=== PATIENT | male | born 1980 | race African-American/Black ===

== ENCOUNTER 2019-01-16 19:22 | Emergency (ER) | payer SELFPAY ==
--- NOTE | 2019-01-16 20:23 | RAD ---
EXAM: Chest one view: HISTORY: Dyspnea, cough, congestion, and earache COMPARISON: None FINDINGS: Heart size: Moderately enlarged. The lungs: Clear of acute process. No evidence for pneumonia, pleural effusion, acute edema, or pneumothorax, or other significant acute process. IMPRESSION: Moderate cardiomegaly without significant vascular congestion, edema, or other acute process.
[2019-01-16] MEDS ORDERED: HYDROcodone/Acetaminophen 5/325 mg Tablet ONE (20:40)
== END 2019-01-16 20:45 | disposition home or self-care (01) ==
LOC: MADERS 19:22
DX: S29.011A Strain of muscle and tendon of front wall of thorax, initial encounter (principal); J06.9 Acute upper respiratory infection, unspecified; X58.XXXA Exposure to other specified factors, initial encounter
CPT/HCPCS: 71045; 93005

== ENCOUNTER 2019-10-18 19:34 | Inpatient (IN) | payer SELFPAY ==
[2019-10-18] MEDS ORDERED: cefTRIAXone\\ROCEPHIN 1 GM VIAL ONE ×2 (20:06→20:29)
[2019-10-18] MEDS ORDERED: Ibuprofen 600 MG TAB ONE (20:06)
[2019-10-18] MEDS ORDERED: Sodium Chloride 0.9% 1,000 ML ONE (20:06)
[2019-10-18] MEDS ORDERED: Sodium Chloride 0.9% 100 ML ONE ×3 (20:07→21:08)
--- NOTE | 2019-10-18 20:15 | RAD ---
RADIOGRAPH CHEST 1 VIEW: DATE: 10/18/2019 TIME: 8:05 PM HISTORY: 39-year-old male with cough COMPARISON: 05/08/2019 FINDINGS: Small right pleural effusion and or pleural thickening, similar to prior study. The adjacent infiltra te at right lower lung zone appears worse on the current study compared to previous, but that could be due to lordotic positioning on the current study. Cardiomegaly. Mild pulmonary venous congestion. No new consolidation. No pneumothorax. Allowing for positional differences, and probably no major interval change. Old right posterior rib fracture deformities are noted. IMPRESSION: 1) small right pleural effusion and/or pleural thickening, similar to prior study. 2) adjacent airspace densities in the right lower lung zone appeared greater on the current study com pared to the previous. This apparent difference could be due to positional differences. 3) multiple old right rib fractures. 4) cardiomegaly and mild pulmonary venous congestion.
[2019-10-18 20:28] LABS: Anion Gap 16 mmol/L (10-20); BUN (Urea Nitrogen) 8 mg/dL (8.9-20.6); Calc. Creatinine Clearance 0 mL/min (70-130); Calcium 9.6 mg/dL (7.8-10.44); Carbon Dioxide 27 mmol/L (22-29); Chloride 105 mmol/L (98-107); Estimated GFR-MDRD Greater than 90; Glucose 136 mg/dL (70-105); Potassium 4.5 mmol/L (3.5-5.1); Sodium 143 mmol/L (136-145)
[2019-10-18 20:31] LABS: Hemoglobin 10.5 g/dL (14.0-18.0); Mean Corpuscular Volume 65.4 fL (78.0-98.0); Red Blood Cell (RBC) Count 5.84 mill/uL (4.70-6.10); White Blood Cell (WBC) Count 17.4 thou/uL (4.8-10.8)
[2019-10-18 20:32] LABS: MDiff Complete? YES; Manual Diff?? YES; Mean Corpuscular HGB CONC 27.5 g/dL (32.0-36.0); Mean Platelet Volume 6.9 fL (7.4-10.4); Platelet Count 365 thou/uL (130-400); RBC Distribution Width 17.5 % (11.5-14.5)
[2019-10-18 20:33] LABS: Anisocytosis SLIGHT = 6-15 cells (100X) (0-5/hpf); Delete Auto Diff?? YES; Elliptocytes SLIGHT = 2-5 cells (100X) (0-1/hpf); Eosinophils 5 % (0-10); Lymphocytes 6 % (21-51); Microcytosis MODERATE=15-30 cells (100X) (0-5/hpf); Monocytes 2 % (0-10); Neutrophil 87 % (42-75); Target Cells SLIGHT = 2-5 cells (100X) (0-1/hpf)
[2019-10-18 20:34] LABS: Tear Drops SLIGHT = 2-5 cells (100X) (0-1/hpf)
[2019-10-18] MEDS ORDERED: Azithromycin 500 MG VIAL ONE (21:08)
[2019-10-18 23:45] VITALS: BMI 40.7
[2019-10-19] MEDS ORDERED: Acetaminophen 325 MG TAB PO PRN (00:13)
[2019-10-19] MEDS: Guaifenesin DM 100-10/5 ML UDCUP PO PRN ×3 (00:25→23:47)
[2019-10-19] MEDS ORDERED: Ondansetron ODT 4 MG TAB PO PRN (12:08)
[2019-10-19] MEDS: cefTRIAXone\\ROCEPHIN 1 GM in Sodium Chloride 0.9% 100 ML IVPB SCH (12:55)
[2019-10-19] MEDS: Azithromycin 500 MG in Sodium Chloride 0.9% 250 ML 250 ML IVPB SCH ×3 (13:51→22:20)
[2019-10-19] MEDS ORDERED: Sodium Chloride 0.9% 1,000 ML IV SCH (15:00)
[2019-10-19] MEDS: metFORMIN 500 MG TAB PO SCH (16:42)
--- NOTE | 2019-10-19 18:54 | HP ---
PRIMARY CARE PHYSICIAN: Yuly Nick MD CHIEF COMPLAINT: Cough with shortness of breath x1 week. HISTORY OF PRESENT ILLNESS: Mr. Young is a 39-year-old male with medical history of obstructive sleep apnea, hypertension, diabetes type 2, diastolic heart failure, morbid obesity, iron deficiency anemia, who presented to the emergency room due to a 1-week history of low-grade fever, cough, wheezing, and progressively worsening shortness of breath. The patient states he has been around multiple sick contacts at home and he was trying to treat himself with [id number] medications, but he has progressively worsened. In the emergency room, the patient was noted to have O2 saturation of 87% on room air and some tachycardia when he presented. He had a low-grade temperature of 99.9. He had an extensive workup with a chest x-ray and some labs, and chest x-ray in the emergency room showed small right pleural effusion, pleural thickening similar to prior study, but right lower lung zone density is greater now compared to previous. The patient also had cardiomegaly, mild pulmonary venous congestion, and multiple old right rib fractures. In the emergency room, the patient was treated with ibuprofen 600 mg, DuoNeb, Rocephin 1 g, and azithromycin 500 mg. The patient had a WBC of 17.4. His hemoglobin was 10.5. Lactic acid was 1.4, but his CK was 1944. The patient has also had 2 previous hospitalizations in 2019 due to respiratory distress and pneumonia. Due to this, the decision was made to admit the patient for pneumonia and further management prior to discharge back to his home. Upon evaluation of the patient today, he states he feels slightly better after above treatments, but he is still having significant shortness of breath and coughing spells with minimal talking. He complains of shortness of breath with ambulation and spitting of phlegm. He denies any chest pain. Denies palpitation. Denies blurry vision, fever, or falls. PAST MEDICAL HISTORY: Hypertension, COPD, diabetes type 2, obstructive sleep apnea, on CPAP, iron deficiency anemia, diastolic heart failure, pulmonary hypertension , morbid obesity. PAST SURGICAL HISTORY: None. ALLERGIES: NO KNOWN DRUG ALLERGIES. FAMILY HISTORY: Noncontributory to this case. REVIEW OF SYSTEMS: CONSTITUTIONAL: The patient has fever, chills, generalized weakness. RESPIRATORY: The patient has cough, sputum production, shortness of breath, sleep apnea. CARDIOVASCULAR: No chest pain or palpitation. GASTROINTESTINAL: No nausea, vomiting, diarrhea, or abdominal pain. LIABILITY CLAIMS EXAMINER: No dizziness, headaches, falls. GENITOURINARY: No dysuria, burning, or hematuria. EXTREMITIES: No leg swelling. All other systems are negative except for the ones mentioned in findings above. MEDICATIONS: 1. Ferrous sulfate 325 b.i.d. 2. Metformin 500 b.i.d. 3. Lisinopril 20 mg daily. PHYSICAL EXAMINATION: VITAL SIGNS: Temperature 98.0, pulse 101, respirations 16, O2 saturation 96% on 2 L nasal cannula, and blood pressure 144/73. GENERAL: The patient is alert, awake, and oriented x3. Sitting up in bedside chair, in no apparent distress, but has coughing spells before completing sentences. HEENT: Eyes, normal conjunctivae. Oral mucous membranes moist. Anicteric sclerae. NECK: No JVD. RESPIRATORY: Bilateral decreased air entry. Scattered wheezing. No rales. Symmetrical expansion. CARDIOVASCULAR: Normal rate and rhythm. S1 and S2. No gallops. No murmurs. ABDOMEN: Soft, obese, nontender, and nondistended. MUSCULOSKELETAL: Full range of motion to all extremities. PSYCHIATRY: The patient is in a good mood. No anxiety. Optimal judgment. SKIN: No pallor. No rash. Capillary refill seems to be intact. NEUROLOGICAL: No focal deficits. Cranial nerves 2 through 12 intact. EXTREMITIES: No edema. ASSESSMENT AND PLAN: The patient is a 39-year-old male who presented due to worsening shortness of breath, cough, and wheezing. We will admit the patient to [facility] for right lower lobe pneumonia seen on chest x-ray. We will continue Rocephin 1 g and azithromycin 500 started in the emergency room. We will adjust medicine as needed. We will place the patient on DuoNeb q.6 scheduled and q.[address] We will place the patient on guaifenesin 600 mg q.6 b.i.d. and Robitussin DM p.r.n. We will continue home medications. We will do Accu-Chek fasting. We will repeat the CBC, BMP, and CK in the morning. We will place the patient on SCDs for DVT prophylaxis and PPI for GI prophylaxis. The patient is a full code. We will administer a Pneumovax vaccination for the patient during this hospitalization. Estimated length of stay, 3 to 4 days. Job ID: [id number] [facility]
[2019-10-19] MEDS: guaiFENesin ER 600 MG TAB PO SCH (22:08)
[2019-10-19] MEDS: Ferrous Sulfate 325 MG TAB PO SCH (22:08)
[2019-10-19] MEDS: Famotidine 20 MG TAB PO SCH (22:09)
[2019-10-19] MEDS: Montelukast Sodium 10 mg Tablet PO SCH (22:09)
[2019-10-20 06:17] LABS: ALT (SGPT) 29 U/L (8-55); AST (SGOT) 26 U/L (5-34); Albumin 4.1 g/dL (3.5-5.0); Alkaline Phosphatase 73 U/L (40-110); Anion Gap 15 mmol/L (10-20); BUN (Urea Nitrogen) 6 mg/dL (8.9-20.6); Bilirubin, Total 0.5 mg/dL (0.2-1.2); Calc. Creatinine Clearance 232 mL/min (70-130); Calcium 8.9 mg/dL (7.8-10.44); Carbon Dioxide 27 mmol/L (22-29); Chloride 105 mmol/L (98-107); Estimated GFR-MDRD Greater than 90; Globulin 2.9 g/dL (2.4-3.5); Glucose 84 mg/dL (70-105); Sodium 143 mmol/L (136-145)
[2019-10-20 06:39] LABS: Hemoglobin 9.8 g/dL (14.0-18.0); Mean Corpuscular HGB CONC 26.9 g/dL (32.0-36.0); Mean Corpuscular Hemoglobin 17.7 pg (27.0-31.0); Mean Corpuscular Volume 65.6 fL (78.0-98.0); Platelet Count 345 thou/uL (130-400); RBC Distribution Width 17.6 % (11.5-14.5); Red Blood Cell (RBC) Count 5.52 mill/uL (4.70-6.10); White Blood Cell (WBC) Count 8.9 thou/uL (4.8-10.8)
[2019-10-20 06:40] LABS: #Basophils 0.1 thou/uL (0.0-0.2); #Eosinphils 0.4 thou/uL (0.0-0.7); #Neutrophils 6.6 thou/uL (1.40-6.50); %Basophils 1.5 % (0.0-1.0); %Eosinophils 4.1 % (0.0-10.0); %Lymphocytes 11.9 % (21.0-51.0); %Neutrophils 74.5 % (42.0-75.0); Anisocytosis SLIGHT = 6-15 cells (100X) (0-5/hpf); MDiff Complete? YES; Manual Diff?? NO; Mean Platelet Volume 7.4 fL (7.4-10.4)
[2019-10-20 06:41] LABS: Elliptocytes SLIGHT = 2-5 cells (100X) (0-1/hpf); Hypochromia SLIGHT = 6-15 cells (100X) (0-5/hpf); Microcytosis SLIGHT = 6-15 cells (100X) (0-5/hpf); Poikilocytosis SLIGHT = 6-15 cells (100X) (0-5/hpf); Target Cells SLIGHT = 2-5 cells (100X) (0-1/hpf)
[2019-10-20] MEDS: Famotidine 20 MG TAB PO SCH ×2 (08:32→21:51)
[2019-10-20] MEDS: metFORMIN 500 MG TAB PO SCH ×2 (08:32→18:07)
[2019-10-20] MEDS: guaiFENesin ER 600 MG TAB PO SCH ×2 (08:33→21:51)
[2019-10-20] MEDS: Ferrous Sulfate 325 MG TAB PO SCH ×2 (08:33→21:51)
[2019-10-20] MEDS: Lisinopril 20 MG TAB PO SCH (08:33)
[2019-10-20] MEDS: cefTRIAXone\\ROCEPHIN 1 GM in Sodium Chloride 0.9% 100 ML IVPB SCH (12:28)
[2019-10-20] MEDS: Azithromycin 500 MG in Sodium Chloride 0.9% 250 ML 250 ML IVPB SCH (21:50)
[2019-10-20] MEDS: buPROPion HCl 100 MG TAB PO SCH (21:51)
[2019-10-20] MEDS: Montelukast Sodium 10 mg Tablet PO SCH (21:51)
[2019-10-21] MEDS: guaiFENesin ER 600 MG TAB PO SCH (08:21)
[2019-10-21] MEDS: Famotidine 20 MG TAB PO SCH (08:21)
[2019-10-21] MEDS: metFORMIN 500 MG TAB PO SCH ×2 (08:21→17:07)
[2019-10-21] MEDS: buPROPion HCl 100 MG TAB PO SCH (08:21)
[2019-10-21] MEDS: Lisinopril 20 MG TAB PO SCH (08:22)
[2019-10-21] MEDS: Ferrous Sulfate 325 MG TAB PO SCH (08:22)
[2019-10-21] MEDS: cefTRIAXone\\ROCEPHIN 1 GM in Sodium Chloride 0.9% 100 ML IVPB SCH (11:50)
[2019-10-21 12:08] VITALS: BP 159/88; TEMP 97.9
[2019-10-21] MEDS ORDERED: Azithromycin 250 MG TAB PO SCH (17:00)
--- NOTE | 2019-10-22 03:04 | DIS ---
DATE OF ADMISSION: 10/18/2019 DATE OF DISCHARGE: 10/21/2019 DISCHARGE DISPOSITION: Back to home. DISCHARGE DIAGNOSES: 1. Community-acquired pneumonia, improving. 2. Shortness of breath, resolved. 3. Hypertension. 4. Diabetes type 2. 5. Tobacco abuse. DISCHARGE MEDICATIONS: 1. Azithromycin 250 x1 day. 2. DuoNeb q.4 p.r.n. shortness of breath or wheezing. 3. Wellbutrin 100 mg b.i.d. 4. Metformin 500 b.i.d. 5. Lisinopril 20 daily. 6. Ferrous sulfate 325 b.i.d. 7. Singulair 10 mg at bedtime. BRIEF HOSPITAL COURSE: Mr. Young is a 39-year-old male with a medical history of hypertension, obstructive sleep apnea on CPAP, type 2 diabetes, diastolic heart failure, iron deficiency anemia, and morbid obesity. The patient presented to the emergency room on the 18 of October due to a 1-week history of shortness of breath, cough, and a low-grade fever. In the emergency room, patient was noted to have O2 saturations in the 87, low-grade temperature, and chest x-ray confirmed a small pleural effusion and right lower lobe pneumonia. The decision was made to admit the patient for community-acquired pneumonia. He was started on IV Rocephin 1 g and azithromycin 500 mg and this was continued throughout hospitalization. The patient upon admission had a white count of 17.4, and this improved to 8.9 prior to discharge. His CK was also elevated on admission was 1944, and upon discharge was 910. The patient initially required oxygen and it was slowly weaned off. His respiratory status improved slowly. He still had episodes of coughing spells that was improved compared to when he previously came in. The patient had 4 doses of IV Rocephin 1g and 3 doses of IV azithromycin 500mg and 1 dose of oral 250mg azithromycin on day of discharge. He will complete 5th dose of Azithromycin tomorrow, and medicine was sent to the pharmacy for him. The patient was weaned off oxygen and he was subsequently discharged home. He was advised to stop tobacco smoking. The patient was started on Wellbutrin to help with this. The patient is a full code and the patient was discharged home in a stable condition with his . Discharge vital signs; temperature 97.9, pulse 78, respirations 20, O2 saturations 98% on room air, blood pressure 159/88. Job ID: [id number] MTDD
[2019-10-22] MEDS ORDERED: Azithromycin 250 MG TAB PO SCH (09:00)
--- NOTE | 2019-10-24 04:32 | PQF ---
[employer] Assistant Case Manager Crystal Reports Winform ViewerJEFF AVILES MANUEL OROZCO [id number] CLINICAL DOCUMENTATION CLARIFICATION FORM: POST DISCHARGE Addendum to original discharge summary date: ____ Late entry note date: __ DATE: 10/24/2019 ATTN: MANUEL OROZCO Please exercise your independent, professional judgment in responding to the clarification form. Clinical indicators are provided on the bottom of this form for your review Please check appropriate box(s) to clarify if the following diagnosis has been ruled in or ruled out: SEPSIS (CDI/Coding list diagnosis here) [ ] Ruled in diagnosis [ ] Continue to treat [ ] Resolved [ x ] Ruled out diagnosis [ ] Cannot rule out diagnosis [ ] Other diagnosis [ ] Unable to determine In addition, please specify: Present on Admission (POA): [ ] Yes [x ] No [ ] Unable to determine For continuity of documentation, please document condition throughout progress notes and discharge summary. Thank You. CLINICAL INDICATORS - SIGNS / SYMPTOMS / LABS Sepsis - Documented in ER report pg#9 Pulse rate 120 on 10/18 - Documented in ER report pg#2 Respiration rate 24 on 10/18 - Documented in ER report pg#2 Elevated WBC 17.4 on 10/18 - Documented in Laboratory RISK FACTORS Community Acquired Pneumonia - Documented in DS on 10/21 by MANUEL OROZCO HTN DM Diastolic heart failure - Documented in DS on 10/21 by MANUEL OROZCO TREATMENTS Azithromycin IVPB - Medication report Rocephin IVPB - Medication report [employer] Assistant Case Manager Crystal Reports Winform Viewer (This form is maintained as a part of the permanent medical record) 2014 [employer]. All Rights Reserved [email or web address] [not provided] MTDD
--- NOTE | 2019-10-27 05:02 | PQF ---
[employer] Senior Living Sales Counselor Crystal Reports Winform JEFF Cheek MANUEL OROZCO [id number] CLINICAL DOCUMENTATION CLARIFICATION FORM: POST DISCHARGE Addendum to original discharge summary date: ____ Late entry note date: __ DATE: 10/27/2019 ATTN:MANUEL OROZCO Please exercise your independent, professional judgment in responding to the clarification form. Clinical indicators are provided on the bottom of this form for your review Please check appropriate box(s): [ x] Acute Respiratory Failure: [ x ] with Hypoxia[ ] with Hypercapnia [ ] Acute On Chronic Respiratory Failure: [ ] with Hypoxia [ ] with Hypercapnia [ ] Acute Respiratory Failure due to: (etiology) [ ] ARDS (Acute Respiratory Distress Syndrome) [ ] Chronic Respiratory Failure only [ ] with Hypoxia [ ] with Hypercapnia [ ] Hypoxia [ ] Other diagnosis [ ] Unable to determine In addition, please specify: Present on Admission (POA): [ x ] Yes [ ] No [ ] Unable to determine For continuity of documentation, please document condition throughout progress notes and discharge summary. Thank You. CLINICAL INDICATORS - SIGNS / SYMPTOMS / LABS Shortness of breath 1 week - Documented in H&P on 10/18 by MANUEL THRASHER In Emergency room pt was noted to have O2 saturations in the 87 - Documented in DS on 10/21 by MANUEL OROZCO Chest X ray demonstrate Pleural effusion - Documented in DS on 10/21 by MANUEL OROZCO respiratory distress - Documented in ED note pg#2 Initially required oxygen & it was slowly weaned off. His respiratory status improved . 87% RA , 96% - Documented in ED note pg#2 RISK FACTORS Community acquired Pneumonia - Documented in DS on 10/21 by MANUEL OROZCO Diastolic heart failure HTN TREATMENTS: O2 delivery - Nasal Cannula [employer] Senior Living Sales Counselor Crystal Reports Winform Viewer (This form is maintained as a part of the permanent medical record) 2014 [employer] All Rights Reserved [email or web address] MTDD
== END 2019-10-21 17:35 | disposition home or self-care (01) | DRG 193 ==
LOC: MADERS 19:34 → MADMS 21:24
PROVIDERS: ADMIT Family Medicine; ATTEND Family Medicine
DX: J18.9 Pneumonia, unspecified organism (principal); J96.01 Acute respiratory failure with hypoxia; I50.32 Chronic diastolic (congestive) heart failure; Z68.41 Body mass index [BMI] 40.0-44.9, adult; E66.01 Morbid (severe) obesity due to excess calories; I11.0 Hypertensive heart disease with heart failure; J44.9 Chronic obstructive pulmonary disease, unspecified; E11.9 Type 2 diabetes mellitus without complications; G47.33 Obstructive sleep apnea (adult) (pediatric); D50.9 Iron deficiency anemia, unspecified
CPT/HCPCS: 36415; 36416; 71045; 80048; 80053; 82550; 83605; 83880; 84484; 85025; 87040; 87804; 90471; 90732; 93005; 94640; 96361; 96365; 96375; G0009; J0456; J0696; J3490; J7050; J7620

== ENCOUNTER 2020-04-09 18:35 | Emergency (ER) | payer SELFPAY ==
[2020-04-09] MEDS ORDERED: Insulin Regular 300 UNITS/3 ML VIAL ONE (18:49)
--- NOTE | 2020-04-09 19:03 | RAD ---
Portable frontal chest radiograph: 04/09/2020 COMPARISON: 10/18/2019 HISTORY: Altered mental status FINDINGS: Chronic hazy pleural and parenchymal density noted within the inferior lateral aspect of th e right lung base, similar when compared to prior chest radiograph performed 10/18/[address] performed 05/09/2019. Multiple old fractures are noted involving right-sided ribs in this nirmal on. Evaluation of the left base is slightly limited by motion. No focal consolidation or alveolar edema. No significant interval change. Stable prominence of the cardiac silhouette. IMPRESSION: Stable appearance of the chest as detailed above.
[2020-04-09 19:12] LABS: ALT (SGPT) 58 U/L (8-55); AST (SGOT) 19 U/L (5-34); Albumin 4.7 g/dL (3.5-5.0); Alkaline Phosphatase 238 U/L (40-110); Anion Gap 23 mmol/L (10-20); BUN (Urea Nitrogen) 22 mg/dL (8.9-20.6); Bilirubin, Total 0.6 mg/dL (0.2-1.2); CK (CPK) 689 U/L (30-200); Calc. Creatinine Clearance 0 mL/min (70-130); Calcium 11.5 mg/dL (7.8-10.44); Carbon Dioxide 24 mmol/L (22-29); Chloride 86 mmol/L (98-107); Estimated GFR-MDRD 38; Globulin 3.7 g/dL (2.4-3.5); Potassium 5.9 mmol/L (3.5-5.1); Protein, Total 8.4 g/dL (6.0-8.3); Sodium 127 mmol/L (136-145)
[2020-04-09 19:15] LABS: Bilirubin Negative (Negative); Blood, Urine Negative (Negative); Clarity Clear (Clear); Glucose, Urine (Dipstick) >=1000 mg/dL (Negative); Ketone, Urine Negative (Negative); Leukocyte Negative (Negative); Nitrite Negative (Negative); Protein, Urine (Dipstick) Negative (Neg-Trace); Urobilinogen 0.2 mg/dL (Less than 2); pH, Urine 5.5 (5.0-9.0)
[2020-04-09 19:16] LABS: Specific Gravity, Urine 1.032 (1.002-1.036)
[2020-04-09 19:18] LABS: #Lymphocytes 0.3 thou/uL (1.20-3.40); #Monocytes 0.3 thou/uL (0.11-0.59); #Neutrophils 6.7 thou/uL (1.40-6.50); %Basophils 0.3 % (0.0-1.0); %Eosinophils 0.2 % (0.0-10.0); %Lymphocytes 4.3 % (21.0-51.0); %Monocytes 4.5 % (0.0-10.0); %Neutrophils 90.7 % (42.0-75.0); Anisocytosis SLIGHT = 6-15 cells (100X) (0-5/hpf); Hemoglobin 12.5 g/dL (14.0-18.0); Hypochromia SLIGHT = 6-15 cells (100X) (0-5/hpf); MDiff Complete? YES; Mean Corpuscular HGB CONC 25.4 g/dL (32.0-36.0); Mean Corpuscular Hemoglobin 18.7 pg (27.0-31.0); Mean Corpuscular Volume 73.8 fL (78.0-98.0); Mean Platelet Volume 7.7 fL (7.4-10.4); Microcytosis SLIGHT = 6-15 cells (100X) (0-5/hpf); Platelet Count 389 thou/uL (130-400); Platelet Morphology Comment Appears Adequate; RBC Distribution Width 20.3 % (11.5-14.5); Red Blood Cell (RBC) Count 6.68 mill/uL (4.70-6.10); Stomatocytes SLIGHT = 2-5 cells (100X) (0-1/hpf); White Blood Cell (WBC) Count 7.3 thou/uL (4.8-10.8)
[2020-04-09 19:30] LABS: Glucose 1600 mg/dL (70-105)
--- NOTE | 2020-04-09 20:02 | CT ---
Head CT without contrast 04/09/2020: COMPARISON: None HISTORY: Altered mental status TECHNIQUE: Axial CT imaging at 5 mm intervals from vertex through skull base without contrast FINDINGS: Detailed assessment is slightly limited by head motion artifact. The visualized paranasal s inuses and mastoid air cells are well aerated. No displaced calvarial fracture, intracranial hemorrhage, midline shift, or mass effect. IMPRESSION: No acute findings.
[2020-04-09] MEDS ORDERED: Sodium Chloride 0.9% 1,000 ML ONE ×3 (20:57→22:37)
[2020-04-09 20:58] LABS: Anion Gap 25 mmol/L (10-20); BUN (Urea Nitrogen) 21 mg/dL (8.9-20.6); Calc. Creatinine Clearance 0 mL/min (70-130); Calcium 11.3 mg/dL (7.8-10.44); Carbon Dioxide 20 mmol/L (22-29); Chloride 98 mmol/L (98-107); Estimated GFR-MDRD 45; Potassium 4.8 mmol/L (3.5-5.1); Sodium 138 mmol/L (136-145)
[2020-04-09 21:18] LABS: Glucose 1201 mg/dL (70-105)
[2020-04-09 21:51] LABS: CO2 Tension (PvCO2) 45.7 mmHg (40.0-50.0)
[2020-04-09 21:52] LABS: Base Excess-Venous 2.4 mmol/L (-2.0 to 3.0); Calcium, Ionized 1.31 mmol/L (See Comments:); Chloride 106 mmol/L (98-107); Hemoglobin - Calc 15.8 g/dL (14.0-18.0); Potassium 4.6 mmol/L (3.5-5.1); Sodium 146 mmol/L (138-145); T. Carbon Dioxide 29.4 mmol/L (22.0-28.0); vO2 Saturation-calc 94.1 % (60.0-85.0)
== END 2020-04-09 22:45 | disposition short-term general hospital (02) ==
LOC: MADERS 18:35
DX: E10.10 Type 1 diabetes mellitus with ketoacidosis without coma (principal); E10.65 Type 1 diabetes mellitus with hyperglycemia; R41.82 Altered mental status, unspecified; E78.5 Hyperlipidemia, unspecified; E78.00 Pure hypercholesterolemia, unspecified; I10 Essential (primary) hypertension; J44.9 Chronic obstructive pulmonary disease, unspecified; F17.210 Nicotine dependence, cigarettes, uncomplicated; Z79.84 Long term (current) use of oral hypoglycemic drugs; Z79.899 Other long term (current) drug therapy
CPT/HCPCS: 70450; 71045; 80053; 81003; 82330; 82550; 82803; 84484; 85025; 93005; 94760; 96361; 96374; 96376; J1815; J7050

== ENCOUNTER 2021-06-11 19:59 | Emergency (ER) | payer BC, SELFPAY ==
[2021-06-12 21:59] LABS: SARS-CoV-2 PCR by NAA Not Detected (NotDetected)
== END 2021-06-11 23:27 | disposition home or self-care (01) ==
LOC: MADERS 19:59
DX: B34.9 Viral infection, unspecified (principal); Z20.822 Contact with and (suspected) exposure to COVID-19; E10.9 Type 1 diabetes mellitus without complications; E78.5 Hyperlipidemia, unspecified; I10 Essential (primary) hypertension; E66.9 Obesity, unspecified; J44.9 Chronic obstructive pulmonary disease, unspecified; E78.00 Pure hypercholesterolemia, unspecified; F17.210 Nicotine dependence, cigarettes, uncomplicated; Z79.82 Long term (current) use of aspirin; Z79.899 Other long term (current) drug therapy
CPT/HCPCS: 36416; 71045; J7620; U0003; U0005

== ENCOUNTER 2021-07-06 16:52 | Outpatient (CLI) | payer BC | END 2021-07-06 16:53 | disposition home or self-care (01) | LOC: MADRAD 16:52 | PROVIDERS: ATTEND Family Medicine | DX: J20.9 Acute bronchitis, unspecified (principal) | CPT/HCPCS: 71046 ==

== ENCOUNTER 2021-08-13 19:05 | Emergency (ER) | payer BC ==
[~2021-08-13 19:05] MED LIST: Lactated Ringer's 1,000 ML BAG ONE; Sodium Chloride 0.9% 100 ML BAG ONE
[2021-08-13] MEDS ORDERED: Ipratropium Bromide 2.5 ml Neb ONE (19:59)
[2021-08-13] MEDS ORDERED: Albuterol Sulfate 2.5 mg/0.5 ml Neb ONE (19:59)
[2021-08-13] MEDS ORDERED: methylPREDNISolone Sod Succ/PF 125 MG/2 ML VIAL ONE (19:59)
[2021-08-13 20:41] LABS: INR-International Normal Ratio 1.1; Prothrombin Time 13.8 sec (12.0-14.7)
[2021-08-13 20:42] LABS: PTT 36.2 sec (22.9-36.1)
[2021-08-13 20:44] LABS: D-Dimer Test 1.38 *mcg/mL (0.27-0.43)
[2021-08-13 20:50] LABS: Bicarbonate (HCO3v) 26.2 mmol/L (22.0-28.0); CO2 Tension (PvCO2) 54.9 mmHg (42.0-51.0); Calcium, Ionized 1.04 mmol/L (1.15-1.33); Chloride 92 mmol/L (98-107); Hemoglobin - Calc 10.5 g/dL (14.0-18.0); Potassium 4.6 mmol/L (3.5-5.1); Sodium 128 mmol/L (138-145); T. Carbon Dioxide 27.9 mmol/L (22.0-28.0); vO2 Saturation-calc 74.5 % (60.0-85.0)
[2021-08-13 20:53] LABS: ALT (SGPT) 56 U/L (8-55); AST (SGOT) 104 U/L (5-34); Albumin 3.7 g/dL (3.5-5.0); Alkaline Phosphatase 44 U/L (40-110); Anion Gap 17 mmol/L (10-20); BUN (Urea Nitrogen) 46 mg/dL (8.9-20.6); Bilirubin, Total 0.9 mg/dL (0.2-1.2); CRP (Inflammatory) 18.13 mg/dL (= or < 0.5); Calc. Creatinine Clearance 0 mL/min (70-130); Calcium 8.1 mg/dL (7.8-10.44); Carbon Dioxide 25 mmol/L (22-29); Chloride 93 mmol/L (98-107); Globulin 3.3 g/dL (2.4-3.5); Glucose 105 mg/dL (70-105); Magnesium 1.7 mg/dL (1.6-2.6); Potassium 4.7 mmol/L (3.5-5.1); Sodium 130 mmol/L (136-145)
[2021-08-13 21:20] LABS: #Lymphocytes 0.3 thou/uL (1.20-3.40); #Monocytes 0.2 thou/uL (0.11-0.59); #Neutrophils 7.6 thou/uL (1.40-6.50); %Basophils 0.4 % (0.0-1.0); %Lymphocytes 3.9 % (21.0-51.0); %Monocytes 2.8 % (0.0-10.0); %Neutrophils 92.9 % (42.0-75.0); Bite Cells SLIGHT = 2-5 cells (100X) (0-1/hpf); Hypochromia MODERATE=16-30 cells (100X) (0-5/hpf); MDiff Complete? YES; Mean Corpuscular HGB CONC 28.5 g/dL (32.0-36.0); Mean Corpuscular Hemoglobin 17.7 pg (27.0-31.0); Mean Corpuscular Volume 62.3 fL (78.0-98.0); Mean Platelet Volume 6.5 fL (7.4-10.4); Microcytosis MODERATE=15-30 cells (100X) (0-5/hpf); Platelet Count 263 thou/uL (130-400); RBC Distribution Width 16.5 % (11.5-14.5); Red Blood Cell (RBC) Count 5.09 mill/uL (4.70-6.10); Reflex for Review?? YES; White Blood Cell (WBC) Count 8.2 thou/uL (4.8-10.8)
[2021-08-13 21:35] LABS: CKMB 19.1 ng/mL (0-6.6)
[2021-08-13] MEDS ORDERED: Cefepime 2 GM VIAL ONE (22:00)
[2021-08-13] MEDS ORDERED: Ibuprofen 800 MG TAB ONE (22:09)
[2021-08-13 22:30] LABS: SARS-CoV-2 NAA Rapid Test DETECTED (NotDetected)
== END 2021-08-13 22:27 | disposition short-term general hospital (02) ==
LOC: MADERS 19:05
DX: A41.9 Sepsis, unspecified organism (principal); R65.20 Severe sepsis without septic shock; U07.1 COVID-19; N17.9 Acute kidney failure, unspecified; J96.92 Respiratory failure, unspecified with hypercapnia; J96.91 Respiratory failure, unspecified with hypoxia; G93.40 Encephalopathy, unspecified; R77.8 Other specified abnormalities of plasma proteins; E78.5 Hyperlipidemia, unspecified; I10 Essential (primary) hypertension; E10.9 Type 1 diabetes mellitus without complications; J44.9 Chronic obstructive pulmonary disease, unspecified; F17.210 Nicotine dependence, cigarettes, uncomplicated
CPT/HCPCS: 36416; 70450; 71045; 80053; 82330; 82553; 82803; 83605; 83735; 83880; 84443; 84484; 85025; 85060; 85379; 85610; 85730; 86140; 87040; 93005; 96374; 96375; J0692; J2930; J3490; J7120; J7611; J7620; U0002

== ENCOUNTER 2022-02-07 14:19 | Outpatient (CLI) | payer BC ==
[2022-02-07 17:59] LABS: ALT (SGPT) 40 U/L (8-55); AST (SGOT) 35 U/L (5-34); Albumin 4.4 g/dL (3.5-5.0); Alkaline Phosphatase 61 U/L (40-110); Anion Gap 18 mmol/L (10-20); BUN (Urea Nitrogen) 19 mg/dL (8.9-20.6); Bilirubin, Total 0.6 mg/dL (0.2-1.2); Calc. Creatinine Clearance 0 mL/min (70-130); Calcium 9.2 mg/dL (7.8-10.44); Carbon Dioxide 29 mmol/L (22-29); Chloride 97 mmol/L (98-107); Globulin 2.9 g/dL (2.4-3.5); Glucose 273 mg/dL (70-105); Potassium 4.8 mmol/L (3.5-5.1); Protein, Total 7.3 g/dL (6.0-8.3); Sodium 139 mmol/L (136-145)
[2022-02-07 18:43] LABS: #Basophils 0.1 thou/uL (0.0-0.2); #Lymphocytes 0.3 thou/uL (1.20-3.40); #Monocytes 0.6 thou/uL (0.11-0.59); #Neutrophils 3.7 thou/uL (1.40-6.50); %Basophils 2.4 % (0.0-1.0); %Lymphocytes 6.9 % (21.0-51.0); %Monocytes 11.9 % (0.0-10.0); %Neutrophils 77.8 % (42.0-75.0); Hemoglobin 9.8 g/dL (14.0-18.0); Hypochromia MODERATE=16-30 cells (100X) (0-5/hpf); MDiff Complete? YES; Mean Corpuscular HGB CONC 27.5 g/dL (32.0-36.0); Mean Corpuscular Hemoglobin 17.3 pg (27.0-31.0); Mean Corpuscular Volume 62.7 fL (78.0-98.0); Mean Platelet Volume 8.2 fL (7.4-10.4); Microcytosis MODERATE=15-30 cells (100X) (0-5/hpf); Platelet Count 327 thou/uL (130-400); Platelet Morphology Comment Appears Adequate; Red Blood Cell (RBC) Count 5.71 mill/uL (4.70-6.10); Reflex for Review?? NO; White Blood Cell (WBC) Count 4.8 thou/uL (4.8-10.8)
== END 2022-02-07 14:20 | disposition home or self-care (01) ==
LOC: MADLAB 14:19 → MADRAD 14:20
PROVIDERS: ATTEND Family Medicine
DX: J44.1 Chronic obstructive pulmonary disease with (acute) exacerbation (principal); R53.83 Other fatigue; I51.89 Other ill-defined heart diseases; I51.7 Cardiomegaly
CPT/HCPCS: 71046; 80053; 83880; 84443; 85025

== ENCOUNTER 2022-08-26 18:14 | Emergency (ER) | payer BC ==
[2022-08-26 20:57] LABS: Bilirubin Negative (Negative); Blood, Urine Negative (Negative); Clarity Clear (Clear); Glucose, Urine (Dipstick) 500 mg/dL (Negative); Ketone, Urine Negative (Negative); Leukocyte Negative (Negative); Nitrite Negative (Negative); Protein, Urine (Dipstick) Negative (Neg-Trace); Urobilinogen 0.2 mg/dL (Less than 2); pH, Urine 6.5 (5.0-9.0)
[2022-08-26] MEDS ORDERED: Ketorolac Tromethamine 30 MG/ML VIAL ONE (20:57)
[2022-08-26 21:07] LABS: #Basophils 0.1 thou/uL (0.0-0.2); #Eosinphils 0.2 thou/uL (0.0-0.7); #Lymphocytes 0.7 thou/uL (1.20-3.40); #Neutrophils 5.5 thou/uL (1.40-6.50); %Basophils 1.6 % (0.0-1.0); %Eosinophils 3.3 % (0.0-10.0); %Lymphocytes 9.2 % (21.0-51.0); %Monocytes 12.7 % (0.0-10.0); %Neutrophils 73.3 % (42.0-75.0); Hemoglobin 10.3 g/dL (14.0-18.0); Hypochromia MODERATE=16-30 cells (100X) (0-5/hpf); MDiff Complete? YES; Mean Corpuscular HGB CONC 29.4 g/dL (32.0-36.0); Mean Corpuscular Hemoglobin 20.5 pg (27.0-31.0); Mean Corpuscular Volume 69.8 fl (78.0-98.0); Mean Platelet Volume 5.8 fL (7.4-10.4); Microcytosis MODERATE=15-30 cells (100X) (0-5/hpf); Ovalocytes SLIGHT = 2-5 cells (100X) (0-1/hpf); Platelet Count 321 10x3/uL (130-400); Polychromasia SLIGHT = 2-3 cells (100X) (0-2/hpf); RBC Distribution Width 17.9 % (11.5-14.5); Red Blood Cell (RBC) Count 5.04 mill/uL (4.70-6.10); Reflex for Review?? NO; White Blood Cell (WBC) Count 7.5 10x3/uL (4.8-10.8)
[2022-08-26 21:20] LABS: Anion Gap 17 mmol/L (10-20); BUN (Urea Nitrogen) 15 mg/dL (8.9-20.6); Calc. Creatinine Clearance 0 mL/min (70-130); Calcium 9.7 mg/dL (7.8-10.44); Carbon Dioxide 28 mmol/L (22-29); Chloride 102 mmol/L (98-107); Estimated GFR 86; Glucose 95 mg/dL (70-105); Sodium 142 mmol/L (136-145)
[2022-08-26 21:37] LABS: CKMB 8.7 ng/mL (0-6.6)
[2022-08-26] MEDS ORDERED: Furosemide 40 MG/4 ML VIAL ONE (22:51)
[2022-08-27] MEDS ORDERED: Aspirin 325 MG TAB ONE (01:32)
[2022-08-27 04:31] LABS: Troponin I 0.031 ng/mL (< 0.028)
[2022-08-27] MEDS ORDERED: Furosemide 40 MG/4 ML VIAL ONE (13:17)
== END 2022-08-27 15:01 | disposition home or self-care (01) ==
LOC: MADERS 18:14
DX: I11.0 Hypertensive heart disease with heart failure (principal); I50.9 Heart failure, unspecified; R74.8 Abnormal levels of other serum enzymes; J18.9 Pneumonia, unspecified organism; E11.9 Type 2 diabetes mellitus without complications; Z79.4 Long term (current) use of insulin; Z79.84 Long term (current) use of oral hypoglycemic drugs; E66.9 Obesity, unspecified; J44.9 Chronic obstructive pulmonary disease, unspecified; E78.00 Pure hypercholesterolemia, unspecified; F17.210 Nicotine dependence, cigarettes, uncomplicated; Z79.899 Other long term (current) drug therapy; Z79.82 Long term (current) use of aspirin; Z20.822 Contact with and (suspected) exposure to COVID-19
CPT/HCPCS: 36416; 71045; 80048; 81003; 82553; 83605; 83735; 83880; 84484; 85025; 87804; 93005; 96374; 96375; 96376; J1885; J1940; U0003; U0005

== ENCOUNTER 2023-03-15 16:20 | Emergency (ER) | payer BC ==
[2023-03-15] MEDS ORDERED: Lactated Ringer's 2,000 ML ONE (17:42)
[2023-03-15 17:58] LABS: Bilirubin Negative (Negative); Blood, Urine Negative (Negative); Clarity Clear (Clear); Glucose, Urine (Dipstick) >=1000 mg/dL (Negative); Ketone, Urine 15 mg/dL (Negative); Leukocyte Negative (Negative); Nitrite Negative (Negative); Protein, Urine (Dipstick) Negative (Neg-Trace); Urobilinogen 0.2 mg/dL (Less than 2)
[2023-03-15 18:03] LABS: Specific Gravity, Urine 1.029 (1.002-1.036)
[2023-03-15 18:04] LABS: Bacteria/HPF Rare-Few HPF (None Seen); CAUTI Indications for Culture Dysuria,urgency,freq; RBC/HPF None Seen HPF (0-3); Squamous Epithelial 0-3 HPF (0-3); Urine Culture Reflex No No; WBC/HPF 0-3 HPF (0-3)
[2023-03-15 18:05] LABS: #Basophils 0.1 thou/uL (0.0-0.2); #Lymphocytes 0.6 thou/uL (1.20-3.40); #Monocytes 0.4 thou/uL (0.11-0.59); #Neutrophils 8.6 thou/uL (1.40-6.50); %Basophils 0.6 % (0.0-1.0); %Eosinophils 0.3 % (0.0-10.0); %Lymphocytes 5.7 % (21.0-51.0); %Monocytes 4.3 % (0.0-10.0); %Neutrophils 89.1 % (42.0-75.0); Hemoglobin 12.7 g/dL (14.0-18.0); Mean Corpuscular HGB CONC 28.8 g/dL (32.0-36.0); Mean Corpuscular Hemoglobin 19.7 pg (27.0-31.0); Mean Corpuscular Volume 68.5 fl (78.0-98.0); Mean Platelet Volume 9.2 fL (7.4-10.4); Platelet Count 368 10x3/uL (130-400); RBC Distribution Width 18.3 % (11.5-14.5); Red Blood Cell (RBC) Count 6.42 mill/uL (4.70-6.10); White Blood Cell (WBC) Count 9.6 10x3/uL (4.8-10.8)
[2023-03-15 18:08] LABS: ALT (SGPT) 37 U/L (8-55); AST (SGOT) 17 U/L (5-34); Albumin 4.3 g/dL (3.5-5.0); Alkaline Phosphatase 106 U/L (40-110); Anion Gap 22 mmol/L (10-20); BUN (Urea Nitrogen) 19 mg/dL (8.9-20.6); Bilirubin, Total 0.6 mg/dL (0.2-1.2); Calc. Creatinine Clearance 0 mL/min (70-130); Carbon Dioxide 20 mmol/L (22-29); Chloride 87 mmol/L (98-107); Estimated GFR 45; Globulin 3.7 g/dL (2.4-3.5); Lipase 100 U/L (8-78); Magnesium 1.9 mg/dL (1.6-2.6); Sodium 123 mmol/L (136-145)
[2023-03-15 18:09] LABS: Base Excess-Venous 1.1 mmol/L (-2.0 to 3.0); Bicarbonate (HCO3v) 24.8 mmol/L (22.0-28.0); Calcium, Ionized 1.09 mmol/L (1.15-1.33); Chloride 91 mmol/L (98-107); Hemoglobin - Calc 17.3 g/dL (14.0-18.0); Potassium 6.4 mmol/L (3.5-5.1); Sodium 122 mmol/L (138-145); T. Carbon Dioxide 25.9 mmol/L (22.0-28.0); vO2 Saturation-calc 98.8 % (60.0-85.0)
[2023-03-15 18:14] LABS: Glucose 788 mg/dL (70-105); Potassium 6.1 mmol/L (3.5-5.1)
[2023-03-15] MEDS ORDERED: Sodium Chloride 0.9% 250 ML 250 ML ONE (18:22)
[2023-03-15] MEDS ORDERED: INSULIN REGULAR IN 0.9 % NACL 100 UNITS/100 ML BAG ONE (18:22)
[2023-03-15] MEDS ORDERED: Sodium Chloride 0.9% 100 ML ONE (18:22)
[2023-03-15] MEDS ORDERED: Azithromycin 500 MG VIAL ONE ×2 (18:22→18:25)
[2023-03-15] MEDS ORDERED: cefTRIAXone (ROCEPHIN) 2 GM VIAL ONE (18:22)
[2023-03-15 18:36] LABS: Anisocytosis SLIGHT = 6-15 cells (100X) (0-5/hpf); Microcytosis SLIGHT = 6-15 cells (100X) (0-5/hpf); Polychromasia SLIGHT = 2-3 cells (100X) (0-2/hpf)
[2023-03-15 18:48] LABS: SARS-CoV-2 NAA Rapid Test Not Detected (NotDetected)
[2023-03-15] MEDS ORDERED: Sodium Chloride 0.9% 1,000 ML ONE (18:50)
[2023-03-15 21:13] LABS: Anion Gap 18 mmol/L (10-20); BUN (Urea Nitrogen) 17 mg/dL (8.9-20.6); Calc. Creatinine Clearance 0 mL/min (70-130); Calcium 9.4 mg/dL (7.8-10.44); Carbon Dioxide 22 mmol/L (22-29); Chloride 98 mmol/L (98-107); Estimated GFR 62; Glucose 395 mg/dL (70-105); Potassium 4.2 mmol/L (3.5-5.1); Sodium 134 mmol/L (136-145)
[2023-03-15] MEDS ORDERED: NS 0.9% w/ 20 MEQ KCL 1,000 ML ONE (21:30)
[2023-03-15] MEDS ORDERED: Furosemide 40 MG/4 ML VIAL ONE (21:41)
== END 2023-03-16 00:12 | disposition short-term general hospital (02) ==
LOC: MADERS 16:20
DX: E11.10 Type 2 diabetes mellitus with ketoacidosis without coma (principal); N17.9 Acute kidney failure, unspecified; E87.1 Hypo-osmolality and hyponatremia; J18.9 Pneumonia, unspecified organism; I10 Essential (primary) hypertension; J44.9 Chronic obstructive pulmonary disease, unspecified; E78.00 Pure hypercholesterolemia, unspecified; Z79.84 Long term (current) use of oral hypoglycemic drugs; Z79.899 Other long term (current) drug therapy; Z79.82 Long term (current) use of aspirin; Z79.4 Long term (current) use of insulin; Z20.822 Contact with and (suspected) exposure to COVID-19; Z87.891 Personal history of nicotine dependence
CPT/HCPCS: 36415; 36416; 71045; 80053; 81001; 82010; 82330; 82803; 83605; 83690; 83735; 85025; 87040; 93005; 94760; 96361; 96365; 96367; 96374; 96375; J0456; J0696; J1815; J1940; J3480; J3490; J7050; J7120

== ENCOUNTER 2023-09-22 17:07 | Emergency (ER) | payer BC ==
[2023-09-22] MEDS ORDERED: Aspirin Chewable 81 MG TAB ONE ×2 (17:59→18:40)
[2023-09-22 18:18] LABS: #Basophils 0.1 thou/uL (0.0-0.2); #Eosinphils 0.2 thou/uL (0.0-0.7); #Lymphocytes 0.8 thou/uL (1.20-3.40); #Monocytes 0.5 thou/uL (0.11-0.59); #Neutrophils 7.4 thou/uL (1.40-6.50); %Eosinophils 1.8 % (0.0-10.0); %Lymphocytes 8.9 % (21.0-51.0); %Monocytes 5.8 % (0.0-10.0); %Neutrophils 82.5 % (42.0-75.0); ALT (SGPT) 47 U/L (8-55); AST (SGOT) 30 U/L (5-34); Albumin 4.4 g/dL (3.5-5.0); Alkaline Phosphatase 101 U/L (40-110); Anion Gap 19 mmol/L (10-20); Anisocytosis SLIGHT = 6-15 cells (100X) (0-5/hpf); BUN (Urea Nitrogen) 19 mg/dL (8.9-20.6); Bilirubin, Total 0.4 mg/dL (0.2-1.2); Calc. Creatinine Clearance 0 mL/min (70-130); Calcium 10.1 mg/dL (7.8-10.44); Carbon Dioxide 24 mmol/L (22-29); Chloride 91 mmol/L (98-107); Estimated GFR 49; Globulin 3.5 g/dL (2.4-3.5); Hematocrit 37.2 % (42.0-52.0); Hemoglobin 10.7 g/dL (14.0-18.0); Hypochromia MODERATE=16-30 cells (100X) (0-5/hpf); MDiff Complete? YES; Mean Corpuscular HGB CONC 28.7 g/dL (32.0-36.0); Mean Corpuscular Hemoglobin 19.9 pg (27.0-31.0); Mean Corpuscular Volume 69.3 fl (78.0-98.0); Mean Platelet Volume 7.2 fL (7.4-10.4); Microcytosis SLIGHT = 6-15 cells (100X) (0-5/hpf); Platelet Adequacy Comment Appears Adequate; Platelet Count 291 10x3/uL (130-400); Potassium 4.7 mmol/L (3.5-5.1); Protein, Total 7.9 g/dL (6.0-8.3); Red Blood Cell (RBC) Count 5.37 mill/uL (4.70-6.10); Sodium 129 mmol/L (136-145)
[2023-09-22 18:19] LABS: Troponin I 0.024 ng/mL (< 0.028)
[2023-09-22 18:39] LABS: Glucose 532 mg/dL (70-105)
[2023-09-22] MEDS ORDERED: Nitroglycerin 2% Ointment 1 INCH/1 GM Packet ONE (18:39)
[2023-09-22] MEDS ORDERED: Sodium Chloride 0.9% 1,000 ML ONE (18:40)
[2023-09-22 21:09] LABS: Amphetamine Not Detected (NotDetected); Barbiturates Screen Not Detected (NotDetected); Benzodiazepine Screen Not Detected (NotDetected); Cocaine Metabolite Screen Not Detected (NotDetected); Methadone Not Detected (NotDetected); Methamphetamine Not Detected (NotDetected); Opiate Screen Not Detected (NotDetected); Oxycodone Screen Not Detected (NotDetected); Phencyclidine (PCP) Not Detected (NotDetected); THC/Cannabinoid Screen Not Detected (NotDetected); Tricyclic Screen Not Detected (NotDetected)
[2023-09-22] MEDS ORDERED: Lantus 1000 UNITS/10 ML VIAL SC SCH (23:00)
[2023-09-22] MEDS ORDERED: Insulin Regular 300 UNITS/3 ML VIAL ONE (23:08)
== END 2023-09-23 00:44 | disposition short-term general hospital (02) ==
LOC: MADERS 17:07
DX: R07.9 Chest pain, unspecified (principal); R00.0 Tachycardia, unspecified; E11.9 Type 2 diabetes mellitus without complications; I10 Essential (primary) hypertension; E66.9 Obesity, unspecified; J44.9 Chronic obstructive pulmonary disease, unspecified; E78.00 Pure hypercholesterolemia, unspecified; Z87.891 Personal history of nicotine dependence; Z79.899 Other long term (current) drug therapy; Z79.82 Long term (current) use of aspirin; Z79.84 Long term (current) use of oral hypoglycemic drugs
CPT/HCPCS: 36415; 36416; 71045; 80053; 80306; 83880; 84443; 84484; 85025; 85379; 93005; J1815; J7050